=== PATIENT | male | born 1940 | race Caucasian/White ===

== ENCOUNTER 2020-10-20 09:36 | Day surgery (SDC) | payer MEDICARE, BC ==
[2020-10-20] MEDS ORDERED: Sodium Chloride 0.9% 20 ML ONE (09:40)
[2020-10-20 14:09] VITALS: BP 118/56; TEMP 98.4
== END 2020-10-20 14:20 | disposition home or self-care (01) ==
LOC: ONC/OP 09:36
PROVIDERS: ATTEND Internal Medicine Nephrology
PROC: 30233N1 Transfusion of Nonautologous Red Blood Cells into Peripheral Vein, Percutaneous Approach (ICD-10-PCS; principal; 2020-10-20)
DX: D64.9 Anemia, unspecified (principal)
CPT/HCPCS: 36430; 86850; 86900; 86901; P9016

== ENCOUNTER 2021-03-23 12:23 | Outpatient (CLI) | payer MEDICARE, BC | END 2021-03-23 12:24 | disposition home or self-care (01) | LOC: CT 12:23 | PROVIDERS: ATTEND Internal Medicine Critical Care Medicine | DX: J90 Pleural effusion, not elsewhere classified (principal); J84.10 Pulmonary fibrosis, unspecified; I51.7 Cardiomegaly; I31.3 Pericardial effusion (noninflammatory); K76.1 Chronic passive congestion of liver; B94.8 Sequelae of other specified infectious and parasitic diseases | CPT/HCPCS: 71260 ==

== ENCOUNTER 2021-04-06 07:59 | Day surgery (SDC) | payer MEDICARE, BC ==
[2021-04-05 13:28] VITALS: BMI 24.2
[2021-04-06 10:22] LABS: Pleural Fluid, Protein 2.6 g/dL
[2021-04-06 10:51] LABS: RBC Count-Automated (BF) 378 /cu.mm; WBC/Nucleated-Auto (BF) 151 uL
[2021-04-06 11:16] LABS: BF Color Yellow; Body Fluid Source Thoracentesis Fluid; Clarity Hazy (Clear); Tube # EDTA
[2021-04-06 11:19] LABS: BF Segmented Neutrophils 4 %; Cell Count Non Hematic 68 %; Lymphocytes 28 %
== END 2021-04-06 09:45 | disposition home or self-care (01) ==
LOC: SDC 07:59
PROVIDERS: ATTEND Internal Medicine Critical Care Medicine
PROC: 0W993ZZ Drainage of Right Pleural Cavity, Percutaneous Approach (ICD-10-PCS; principal; 2021-04-06)
DX: J90 Pleural effusion, not elsewhere classified (principal); I13.10 Hypertensive heart and chronic kidney disease without heart failure, with stage 1 through stage 4 chronic kidney disease, or unspecified chronic kidney disease; E11.22 Type 2 diabetes mellitus with diabetic chronic kidney disease; N18.9 Chronic kidney disease, unspecified; D63.1 Anemia in chronic kidney disease; J44.9 Chronic obstructive pulmonary disease, unspecified; E78.5 Hyperlipidemia, unspecified; K21.9 Gastro-esophageal reflux disease without esophagitis; Z87.891 Personal history of nicotine dependence; Z79.82 Long term (current) use of aspirin; Z79.899 Other long term (current) drug therapy; Z99.2 Dependence on renal dialysis
CPT/HCPCS: 32554; 82150; 82945; 83615; 83986; 84157; 84478; 85060; 87070; 87116; 87205; 87206; 88112; 89051